=== PATIENT | male | born 2000 | race Caucasian/White ===

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

== ENCOUNTER 2025-06-20 22:56 | Emergency (ER) | payer BC ==
[~2025-06-20] VITALS: Ht 170.2 cm; Wt 52.2 kg
[2025-06-20 22:57] VITALS: BP 153/110
[2025-06-20 23:44] LABS: PLATELET COUNT (AUTO) 315 K/uL (152-348); RED BLOOD CELL COUNT(AUTO) 5.17 MIL/uL (4.06-5.63); RED CELL DISTRIBUTION WIDTH 12.5 % (12.1-16.2); WHITE BLOOD COUNT (AUTO) 7.2 K/uL (3.6-10.2)
[2025-06-20] MEDS: IV NORMAL SALINE 1000 ML BAG IV ONE (23:44)
[2025-06-20 23:51] LABS: CREATININE 1.0 mg/dL (0.6-1.3); SODIUM SERUM 136 mmol/L (136-145); UREA NITROGEN, BLOOD 8 mg/dL (7-18)
[2025-06-20 23:57] LABS: ETHANOL < 3 MG/DL (0-10)
[2025-06-21 00:01] LABS: ASPARTATE AMINOTRANSFERASE 36 U/L (15-37); TOTAL PROTEIN, SERUM 8.0 g/dL (6.4-8.2)
[2025-06-21] MEDS ORDERED: LIDOCAINE 2% (GLYDO= UROJET) 10 ML JELLY MM ONE (00:25)
[2025-06-21 00:42] LABS: *BILIRUBIN,URIN NEGATIVE (NEGATIVE); *BLOOD, URINE NEGATIVE (NEGATIVE); *CLARITY,URINE CLEAR (CLEAR); *COLOR,URINE YELLOW (YELLOW); *KETONES,URINE TRACE (NEGATIVE); *PROTEIN,URINE NEGATIVE (NEGATIVE); *UROBILINOGEN,URINE 0.2 E.U./dl (NORMAL); LEUKOCYTE ESTERASE ,URINE NEGATIVE (NEGATIVE); NITRITE, URINE NEGATIVE (NEGATIVE); UGLUCOSE NEGATIVE (NEGATIVE)
[2025-06-21] MEDS: LIDOCAINE 2% (GLYDO= UROJET) 10 ML JELLY MM ONE (00:42)
[2025-06-21 00:51] LABS: SQUAMOUS EPITHELIAL CELL,UR FEW /HPF (NONE SEEN)
[2025-06-21 00:54] LABS: *AMPHETAMINE, URINE POSITIVE (NEGATIVE); *BARBITURATE, URINE NEGATIVE (NEGATIVE); *BENZODIAZEPINE, URINE POSITIVE (NEGATIVE); *CANNABINOID, URINE NEGATIVE (NEGATIVE); *COCCAINE, URINE NEGATIVE (NEGATIVE); *OPIATE, URINE NEGATIVE (NEGATIVE); *PHENCYCLIDINE SCREEN,URINE NEGATIVE (NEGATIVE); FENTANYL, URINE POSITIVE (NEGATIVE)
[2025-06-21] MEDS ORDERED: NALO4SPR NS (01:06)
[2025-06-21 02:01] VITALS: BP 139/91; O2SAT 97
== END 2025-06-21 01:10 | disposition home or self-care (01) ==
LOC: ER 22:56
DX: T42.4X1A Poisoning by benzodiazepines, accidental (unintentional), initial encounter (principal); F15.90 Other stimulant use, unspecified, uncomplicated; F17.200 Nicotine dependence, unspecified, uncomplicated; F41.9 Anxiety disorder, unspecified; Y92.89 Other specified places as the place of occurrence of the external cause
CPT/HCPCS: 80076; 80048; 85025; 36415; 51702; 99284; 96360; 80299; 80320; 80307; 99406; 81001; J7040; 93005; A4606; A4663; C1758; G0480